=== PATIENT | male | born 2000 | race Two or more races ===

== ENCOUNTER 2022-03-05 10:46 | Emergency (ER) | payer OTHER ==
[~2022-03-05] VITALS: Ht 170.2 cm; Wt 59.0 kg
[2022-03-05] MEDS ORDERED: PEPCID AC20 MG PO (11:05)
[2022-03-05] MEDS ORDERED: CARAFATE1 GM (11:05)
== END 2022-03-05 15:16 | disposition home or self-care (01) ==
LOC: ER 10:46 → EMR PED 10:46
DX: S39.011A Strain of muscle, fascia and tendon of abdomen, initial encounter (principal); X58.XXXA Exposure to other specified factors, initial encounter; Y93.89 Activity, other specified; Y92.89 Other specified places as the place of occurrence of the external cause; Y99.9 Unspecified external cause status; Z20.822 Contact with and (suspected) exposure to COVID-19; K80.20 Calculus of gallbladder without cholecystitis without obstruction